=== PATIENT | female | born 1950 | race Caucasian/White ===

== ENCOUNTER → 2018-08-08 | Outpatient (CLI) | payer MEDICARE ==
--- NOTE | 2018-08-08 14:42 | RAD ---
DATE: 08/08/2018 EXAM: MAMMO STACY SCREENING BILATERAL HISTORY: Routine screening COMPARISON: 02/26/2015 This study was interpreted with the benefit of Computerized Aided Detection (CAD). Breast Density: HETERO The breast parenchyma is heterogenously dense, which could reduce sensitivity of mammography. Breast parenchyma level C. FINDINGS: 2-D and 3-D tomosynthesis imaging was performed in CC and MLO projections. No spiculated mass or architectural distortion is evident. Benign type calcifications are present. No suspicious microcalcifications have developed. IMPRESSION: There is no mammographic evidence of malignancy] breast. BI-RADS CATEGORY: 2 BENIGN FINDING(S) RECOMMENDED FOLLOW-UP: 12M 12 MONTH FOLLOW-UP PQRS compliance statement: Patient information was entered into a reminder system with a target due date for the next mammogram. Mammography is a sensitive method for finding small breast cancers, but it does not detect them all and is not a substitute for careful clinical examination. A negative mammogram does not negate a clinically suspicious finding and should not result in delay in biopsying a clinically suspicious abnormality. "Our facility is accredited by the [employer] Mammography Program."
== END | disposition home or self-care (01) ==
LOC: MAMMO 12:25
PROVIDERS: ATTEND Family Medicine
DX: Z12.31 Encounter for screening mammogram for malignant neoplasm of breast (principal)
CPT/HCPCS: 77063; 77067

== ENCOUNTER → 2018-08-29 | Day surgery (SDC) | payer MEDICARE ==
[~2018-08-29] MED LIST: ATEN25TA PO; FLUT1DIS3 IH; HYDROmorphone 2 MG/ML VIAL IV PRN; IV RINGERS,LACTATED 1000ML 1,000 ML IV SCH; LANS30CA PO; LIDOCAINE 1% PF 2 ML VIAL. ID PRN; LIDOCAINE 2% 100 MG/5 ML SYRINGE. ONE; METF500T9 PO; MORPHINE SULFATE 2 MG/ML VIAL. IV PRN; ONDANSETRON PF 4 MG/2 ML VIAL. IV PRN; PROCHLORPERAZINE 10 MG/2 ML VIAL. IV PRN; PROPOFOL 40 ML IV ONE; TRIA1CAP3 PO; fentaNYL PF VIAL 100 MCG/2 ML VIAL IV PRN
[2018-08-29 12:37] VITALS: BP 143/87
--- NOTE | 2018-08-29 19:45 | CONS ---
DATE OF CONSULTATION: 08/29/2018 REFERRING PHYSICIAN: Dr. Idris Card. REASON FOR CONSULTATION: Graf's surveillance. HISTORY OF PRESENT ILLNESS: A 68-year-old female with past medical history significant for asthma and osteoarthrosis, ventricular arrhythmia, endometriosis, history of Graf's, is seen for surveillance exam. The patient denies any dysphagia or odynophagia. She has been taking Prevacid 30 mg daily with control of her symptoms. Last EGD in 2013 was without dysplasia, gastritis or H. pylori. She otherwise has been doing well, has no additional complaints. PAST MEDICAL HISTORY: Graf's, PVCs, ventricular arrhythmia, stones as well as gastric polyps, diverticulosis. ALLERGIES: None. MEDICATIONS: Include atenolol, Advair, Prevacid, metformin, triamterene/hydrochlorothiazide. FAMILY AND SOCIAL HISTORY: Per records. REVIEW OF SYSTEMS: Per records. PHYSICAL EXAMINATION: GENERAL: This is a well-nourished, well-developed female who is alert, cooperative, in no acute distress. VITAL SIGNS: Temperature 98.2, pulse 72, respiratory rate is 20. HEENT: Normocephalic and atraumatic head. Pupils and extraocular muscles are not tested. Sclerae anicteric. NECK: Supple. LUNGS: Clear. CARDIOVASCULAR: Reveals an S1, S2 without S3, S4 or appreciable murmur. ABDOMEN: Reveals soft abdomen, normal bowel sounds without appreciable hepatosplenomegaly. EXTREMITIES: Reveals no cyanosis, clubbing, edema. IMPRESSION: Graf's surveillance is recommended at this time. Risks and benefits of procedures have been previously discussed with the patient including risk of hemorrhage and perforation and is willing to proceed at this time. SOPHIA STEINER MD DR: BREE/dinesh JOB#: [id number] / [id number]
--- NOTE | 2018-08-31 12:07 | PATHOLOGY ---
[facility] Accession Number: [id number] . 01 Material submitted: . DISTAL ESOPHAGUS BIOPSIES . 01 Clinical history: . Graf's . 02 Diagnosis: "Distal esophagus BXs", biopsy: - Esophageal squamous mucosa and gastric cardiac-type mucosa with mild reactive changes, mild predominantly chronic inflammation and intestinal metaplasia, compatible with Graf's mucosa; no dysplasia seen. . (CLW:vjm;08/30/2018) AGA/08/30/2018 . 02 Electronically signed: . Kierra Serna MD, Pathologist NPI- [id number] . 01 Gross description: . Received in formalin labeled "Veronica Osborne, distal esophagus BX," are 4 segments of troy soft tissue measuring 1.0 x 0.6 x 0.2 cm in aggregate dimensions and ranging from 0.3 to 0.4 cm in maximum dimension. The specimen is submitted entirely in cassette A1. (TSD; 08/29/2018) TOB/TOB . 02 Pathologist provided ICD-10: K22.70, K20.9 . 02 CPT . 017088 Specimen Comment: A courtesy copy of this report has been sent to Specimen Comment: [phone], . Specimen Comment: Report sent to / DR BARRON Performed at: 01 [facility] [address], [place] [id number] MD Nils Jesus MD Phone: [phone] Performed at: 02 [facility] [address], [place] [id number] MD John Cash MD Phone: [phone]
== END ==
LOC: ENDOS 11:08
PROVIDERS: ATTEND Internal Medicine Gastroenterology
DX: K22.70 Barrett's esophagus without dysplasia (principal); K29.50 Unspecified chronic gastritis without bleeding; M19.90 Unspecified osteoarthritis, unspecified site; J45.909 Unspecified asthma, uncomplicated; Z79.899 Other long term (current) drug therapy
CPT/HCPCS: 43239; 88305; J2704

== ENCOUNTER → 2020-09-28 | Outpatient (CLI) | payer MEDICARE, OTHER ==
[2018-08-29 12:37] VITALS: BP 143/87
[~2020-09-28] MED LIST changes: -HYDROmorphone 2 MG/ML VIAL IV PRN; -IV RINGERS,LACTATED 1000ML 1,000 ML IV SCH; -LIDOCAINE 1% PF 2 ML VIAL. ID PRN; -LIDOCAINE 2% 100 MG/5 ML SYRINGE. ONE; +METF-658 PO; -METF500T9 PO; -MORPHINE SULFATE 2 MG/ML VIAL. IV PRN; -ONDANSETRON PF 4 MG/2 ML VIAL. IV PRN; -PROCHLORPERAZINE 10 MG/2 ML VIAL. IV PRN; -PROPOFOL 40 ML IV ONE; -fentaNYL PF VIAL 100 MCG/2 ML VIAL IV PRN
--- NOTE | 2020-09-28 13:41 | KCIC ---
INDICATION: Osteoporosis screening. Postmenopausal screening COMPARISON: 12/16/2015 TECHNIQUE: Bone densitometry was performed through the lumbar spine and proximal femur. FINDINGS: Lumbar Spine: BMD: 1.08 T-Score: 0.3 Decreased by 3 percent from prior Proximal Femur: BMD: 0.86 T-Score: -0.7 Decreased by 6 percent from prior IMPRESSION: 1. Lumbar spine falls within the normal range. 2. Proximal femur falls within the lower limits of normal range. Electronically signed by: Alexander Card MD (09/28/2020 1:38 PM) [id number]
== END ==
LOC: KCIC DEXA 12:19
PROVIDERS: ATTEND Family Medicine
DX: Z78.0 Asymptomatic menopausal state (principal)
CPT/HCPCS: 77080

== ENCOUNTER → 2020-10-04 | Outpatient (CLI) | payer MEDICARE, OTHER ==
[2018-08-29 12:37] VITALS: BP 143/87
--- NOTE | 2020-10-04 16:28 | KCIC ---
Bilateral digital screening mammograms with 3-D tomosynthesis: Reason for examination: Routine screening. Comparison is made to previous studies dated 08/08/2018 and 02/26/2015. Bilateral mammograms in CC and oblique projections were obtained with 2-D imaging and 3-D tomosynthes is imaging on a Siemens Inspiration unit and reviewed on the workstation. Interpretation was made anitha h the benefit of CAD. The skin and nipples show no abnormalities. No abnormal axillary lymph nodes are seen. The breast par enchyma is heterogeneously dense. (Breast density: Category C.) There appear to be small nodular dens ities in the left breast at approximately the 3:00 B and 3:00 C positions. Recommend further evaluati on with ultrasound. There are no other dominant masses, suspicious calcifications or architectural di stortion. Benign calcifications are present. Impression: Small nodular densities posterior laterally in the left breast seen on CC view. Recommend further phan luation with ultrasound. Your patient's mammogram demonstrates that she has dense breast tissue (breast density category C or D), which could hide abnormalities, and if she has other risk factors for breast cancer that have bee n identified, she might benefit from supplemental screening tests that may be suggested by you as her ordering physician. Dense breast tissue, in and of itself, is a relatively common condition. Therefo re, this information is not provided to cause undue concern, but rather to raise your awareness and t o promote discussion with your patient regarding the presence of other risk factors, in addition to d ense breast tissue. Your patient's mammography results will be sent to her. BI-RAD Category 0: Incomplete. Needs additional imaging evaluation. "Our facility is accredited by the [employer] Mammography [employer]." This patient's information has been entered into a reminder system for the patient to be notified wit h the results of her examination and a target date for the next mammogram. Electronically signed by: Candace Meadows MD (10/04/2020 4:25 PM) [facility]
== END ==
LOC: KCIC MAMMO 12:38
PROVIDERS: ATTEND Family Medicine
DX: Z12.31 Encounter for screening mammogram for malignant neoplasm of breast (principal); N64.89 Other specified disorders of breast
CPT/HCPCS: 77063; 77067

== ENCOUNTER → 2020-10-13 | Outpatient (CLI) | payer MEDICARE, OTHER ==
[2018-08-29 12:37] VITALS: BP 143/87
--- NOTE | 2020-10-13 12:04 | RAD ---
Examination: Limited left breast ultrasound. INDICATION: 70-year-old woman recalled from screening for nodular densities in the lateral left breas t on mammography. COMPARISON: Mammograms of 08/08/2018, 10/04/2020 and limited left breast ultrasound of 06/18/2007. TECHNIQUE: Grayscale and color Doppler imaging of the left breast was performed in the area of nodula rity in the lateral posterior left breast. FINDINGS: Multiple sonographically benign cysts are identified, customer relations representative images acquired at the 3:00 posi tion 9 cm from the nipple, largest measuring 4 mm. This correlates with the area of previous sonograp hic assessment with benign by ultrasound. Sonographic survey of the left axilla reveals no adenopathy or mass. IMPRESSION: Benign findings on targeted left breast ultrasound. No evidence of malignancy. BI-RADS Category 2 Benign findings Recommend return to routine screening next due in one year. Patient entered into to a reminder system with targeted due date for next mammogram. Electronically signed by: Susan Boone MD (10/13/2020 12:02 PM) [id number]
== END ==
LOC: US 10:54
PROVIDERS: ATTEND Family Medicine
DX: N60.02 Solitary cyst of left breast (principal)
CPT/HCPCS: 76641